=== PATIENT | female | born 1950 | race Two or more races ===

== ENCOUNTER 2017-10-01 15:08 | Outpatient (CLI) | payer OTHER ==
[~2017-10-01 15:08] MED LIST: DEPO-MEDROL40 MG/ML IM; GABAPENTIN300 MG PO; METHOCARBAMOL500 MG PO; NEURONTIN300 MG PO; NORFLEX100MG PO; PROTONIX40 MG PO
== END 2017-10-01 15:15 | disposition home or self-care (01) ==
LOC: RAD 15:08
DX: M13.0 Polyarthritis, unspecified (principal); M25.551 Pain in right hip; M25.552 Pain in left hip; M79.641 Pain in right hand; M79.642 Pain in left hand

== ENCOUNTER 2018-05-16 08:48 | Outpatient (CLI) | payer OTHER | END 2018-05-16 08:51 | disposition home or self-care (01) | LOC: MAMO-SONO 08:48 | DX: Z12.31 Encounter for screening mammogram for malignant neoplasm of breast (principal); Z87.898 Personal history of other specified conditions; N60.11 Diffuse cystic mastopathy of right breast; N63.22 Unspecified lump in the left breast, upper inner quadrant; N60.12 Diffuse cystic mastopathy of left breast ==

== ENCOUNTER 2019-03-05 14:25 | Outpatient (CLI) | payer OTHER | END 2019-03-05 14:30 | disposition home or self-care (01) | LOC: LAB 14:25 | DX: D50.8 Other iron deficiency anemias (principal); I10 Essential (primary) hypertension ==

== ENCOUNTER 2019-03-18 09:33 | Outpatient (CLI) | payer OTHER | END 2019-03-18 09:37 | disposition home or self-care (01) | LOC: SONOGRAMA 09:33 → MAMO-SONO 10:15 | DX: E78.2 Mixed hyperlipidemia (principal); D72.818 Other decreased white blood cell count; E55.9 Vitamin D deficiency, unspecified; G62.89 Other specified polyneuropathies; E03.8 Other specified hypothyroidism; E06.3 Autoimmune thyroiditis; Z80.3 Family history of malignant neoplasm of breast; E04.2 Nontoxic multinodular goiter ==

== ENCOUNTER 2019-05-22 07:39 | Outpatient (CLI) | payer OTHER | END 2019-05-22 07:40 | disposition home or self-care (01) | LOC: MAMO-SONO 07:39 | DX: Z12.31 Encounter for screening mammogram for malignant neoplasm of breast (principal); Z87.898 Personal history of other specified conditions; N60.11 Diffuse cystic mastopathy of right breast; N60.12 Diffuse cystic mastopathy of left breast ==

== ENCOUNTER 2019-07-07 07:56 | Outpatient (CLI) | payer OTHER | END 2019-07-07 08:00 | disposition home or self-care (01) | LOC: LAB 07:56 | DX: D51.1 Vitamin B12 deficiency anemia due to selective vitamin B12 malabsorption with proteinuria (principal); D72.818 Other decreased white blood cell count; Z80.3 Family history of malignant neoplasm of breast; E55.9 Vitamin D deficiency, unspecified; G62.89 Other specified polyneuropathies; D50.8 Other iron deficiency anemias; D51.8 Other vitamin B12 deficiency anemias; D55.0 Anemia due to glucose-6-phosphate dehydrogenase [G6PD] deficiency; J45.998 Other asthma; J30.1 Allergic rhinitis due to pollen ==

== ENCOUNTER 2019-07-07 09:03 | Outpatient (CLI) | payer OTHER | END 2019-07-07 12:57 | disposition home or self-care (01) | LOC: RAD 09:03 | DX: J45.998 Other asthma (principal); J30.1 Allergic rhinitis due to pollen ==

== ENCOUNTER 2019-11-25 07:14 | Outpatient (CLI) | payer OTHER | END 2019-11-25 07:22 | disposition home or self-care (01) | LOC: LAB 07:14 | PROVIDERS: ATTEND Internal Medicine Hematology & Oncology | DX: E78.49 Other hyperlipidemia (principal); E11.9 Type 2 diabetes mellitus without complications; Z12.11 Encounter for screening for malignant neoplasm of colon; D50.8 Other iron deficiency anemias; I10 Essential (primary) hypertension; D51.8 Other vitamin B12 deficiency anemias; E03.8 Other specified hypothyroidism; R97.0 Elevated carcinoembryonic antigen [CEA]; R97.8 Other abnormal tumor markers; Z80.3 Family history of malignant neoplasm of breast; D72.818 Other decreased white blood cell count; D51.1 Vitamin B12 deficiency anemia due to selective vitamin B12 malabsorption with proteinuria; E55.9 Vitamin D deficiency, unspecified; G62.89 Other specified polyneuropathies ==

== ENCOUNTER 2019-12-22 08:34 | Outpatient (CLI) | payer OTHER | END 2019-12-22 08:40 | disposition home or self-care (01) | LOC: LAB 08:34 | PROVIDERS: ATTEND Internal Medicine | DX: N39.0 Urinary tract infection, site not specified (principal) ==

== ENCOUNTER → 2020-04-14 08:04 | Outpatient (CLI) | payer OTHER | END | disposition home or self-care (01) | LOC: LAB 08:04 | PROVIDERS: ATTEND Internal Medicine Hematology & Oncology | DX: E78.49 Other hyperlipidemia (principal); D50.8 Other iron deficiency anemias; I10 Essential (primary) hypertension; D51.8 Other vitamin B12 deficiency anemias; E03.8 Other specified hypothyroidism; R97.0 Elevated carcinoembryonic antigen [CEA]; R97.8 Other abnormal tumor markers; E55.9 Vitamin D deficiency, unspecified; Z80.3 Family history of malignant neoplasm of breast; D72.818 Other decreased white blood cell count; D51.1 Vitamin B12 deficiency anemia due to selective vitamin B12 malabsorption with proteinuria; G62.89 Other specified polyneuropathies ==

== ENCOUNTER → 2020-07-28 08:34 | Outpatient (CLI) | payer OTHER | END | disposition home or self-care (01) | LOC: LAB 08:34 | PROVIDERS: ATTEND Internal Medicine Hematology & Oncology | DX: E11.9 Type 2 diabetes mellitus without complications (principal); Z12.11 Encounter for screening for malignant neoplasm of colon; G62.89 Other specified polyneuropathies; E78.49 Other hyperlipidemia; D50.8 Other iron deficiency anemias; R79.89 Other specified abnormal findings of blood chemistry; I10 Essential (primary) hypertension; R74.02 Elevation of levels of lactic acid dehydrogenase [LDH]; K76.89 Other specified diseases of liver; D51.8 Other vitamin B12 deficiency anemias; D47.2 Monoclonal gammopathy; C90.00 Multiple myeloma not having achieved remission; Z80.3 Family history of malignant neoplasm of breast; D72.818 Other decreased white blood cell count; D51.1 Vitamin B12 deficiency anemia due to selective vitamin B12 malabsorption with proteinuria; E55.9 Vitamin D deficiency, unspecified ==

== ENCOUNTER 2020-07-28 09:34 | Outpatient (CLI) | payer OTHER | END 2020-07-28 09:50 | disposition home or self-care (01) | LOC: MAMO-SONO 09:34 | PROVIDERS: ATTEND Surgery | DX: N60.11 Diffuse cystic mastopathy of right breast (principal); N60.12 Diffuse cystic mastopathy of left breast; Z12.31 Encounter for screening mammogram for malignant neoplasm of breast ==

== ENCOUNTER 2020-08-01 10:23 | Outpatient (CLI) | payer OTHER | END 2020-08-01 10:27 | disposition home or self-care (01) | LOC: LAB 10:23 | PROVIDERS: ATTEND Internal Medicine | DX: G62.89 Other specified polyneuropathies (principal); Z12.11 Encounter for screening for malignant neoplasm of colon; E78.49 Other hyperlipidemia ==

== ENCOUNTER 2020-09-19 14:09 | Outpatient (CLI) | payer OTHER | END 2020-09-19 14:12 | disposition home or self-care (01) | LOC: NUCLEAR 14:09 | PROVIDERS: ATTEND Internal Medicine Hematology & Oncology | DX: M81.0 Age-related osteoporosis without current pathological fracture (principal); D51.1 Vitamin B12 deficiency anemia due to selective vitamin B12 malabsorption with proteinuria ==

== ENCOUNTER → 2020-11-29 08:15 | Outpatient (CLI) | payer OTHER | END | disposition home or self-care (01) | LOC: LAB 08:15 | PROVIDERS: ATTEND Internal Medicine Hematology & Oncology | DX: D50.8 Other iron deficiency anemias (principal); R79.9 Abnormal finding of blood chemistry, unspecified; I10 Essential (primary) hypertension; R74.02 Elevation of levels of lactic acid dehydrogenase [LDH]; K76.89 Other specified diseases of liver; D51.8 Other vitamin B12 deficiency anemias; D47.2 Monoclonal gammopathy; C90.00 Multiple myeloma not having achieved remission; Z80.3 Family history of malignant neoplasm of breast; D72.818 Other decreased white blood cell count; D51.1 Vitamin B12 deficiency anemia due to selective vitamin B12 malabsorption with proteinuria; E78.2 Mixed hyperlipidemia; E55.9 Vitamin D deficiency, unspecified; G62.9 Polyneuropathy, unspecified ==

== ENCOUNTER → 2020-12-19 07:55 | Outpatient (CLI) | payer OTHER | END | disposition home or self-care (01) | LOC: NUCLEAR 07:55 | PROVIDERS: ATTEND Internal Medicine Hematology & Oncology | DX: M15.0 Primary generalized (osteo)arthritis (principal) | CPT/HCPCS: 78306; A9503 ==

== ENCOUNTER → 2021-04-10 08:21 | Outpatient (CLI) | payer OTHER | END | disposition home or self-care (01) | LOC: LAB 08:21 | PROVIDERS: ATTEND Internal Medicine Hematology & Oncology | DX: D72.818 Other decreased white blood cell count (principal); D51.1 Vitamin B12 deficiency anemia due to selective vitamin B12 malabsorption with proteinuria; E78.2 Mixed hyperlipidemia; E55.9 Vitamin D deficiency, unspecified; D51.8 Other vitamin B12 deficiency anemias; G62.89 Other specified polyneuropathies; D50.8 Other iron deficiency anemias; I10 Essential (primary) hypertension; R79.89 Other specified abnormal findings of blood chemistry; K76.89 Other specified diseases of liver; K74.02 Hepatic fibrosis, advanced fibrosis; Z80.3 Family history of malignant neoplasm of breast; R97.0 Elevated carcinoembryonic antigen [CEA]; R97.8 Other abnormal tumor markers ==

== ENCOUNTER → 2021-04-21 08:31 | Outpatient (CLI) | payer OTHER | END | disposition home or self-care (01) | LOC: LAB 08:31 | PROVIDERS: ATTEND Internal Medicine | DX: E11.9 Type 2 diabetes mellitus without complications (principal); J45.20 Mild intermittent asthma, uncomplicated; E78.49 Other hyperlipidemia; K21.9 Gastro-esophageal reflux disease without esophagitis ==

== ENCOUNTER 2021-05-03 08:00 | Outpatient (CLI) | payer OTHER | END 2021-05-03 08:30 | disposition home or self-care (01) | LOC: PPH VACUNA 08:00 | PROVIDERS: ATTEND Emergency Medicine Pediatric Emergency Medicine | DX: Z23 Encounter for immunization (principal) ==

== ENCOUNTER → 2021-08-22 07:38 | Outpatient (CLI) | payer OTHER | END | disposition home or self-care (01) | LOC: LAB 07:38 | PROVIDERS: ATTEND Internal Medicine Hematology & Oncology | DX: D50.8 Other iron deficiency anemias (principal); R79.9 Abnormal finding of blood chemistry, unspecified; I10 Essential (primary) hypertension; R74.02 Elevation of levels of lactic acid dehydrogenase [LDH]; K76.89 Other specified diseases of liver; D51.8 Other vitamin B12 deficiency anemias; E55.9 Vitamin D deficiency, unspecified; R97.0 Elevated carcinoembryonic antigen [CEA]; R97.8 Other abnormal tumor markers; Z80.3 Family history of malignant neoplasm of breast; D72.818 Other decreased white blood cell count; E78.2 Mixed hyperlipidemia; G62.9 Polyneuropathy, unspecified; M15.0 Primary generalized (osteo)arthritis ==

== ENCOUNTER 2021-09-12 08:32 | Emergency (ER) | payer OTHER ==
[~2021-09-12] VITALS: Ht 152.4 cm; Wt 73.5 kg
[2021-09-12] MEDS ORDERED: SIMVASTATIN40 MG PO (09:03)
[2021-09-12] MEDS ORDERED: NORFLEX100MG PO (10:00)
[2021-09-12] MEDS ORDERED: CYCLOBENZAPRINE10 MG PO (10:02)
== END 2021-09-12 11:09 | disposition home or self-care (01) ==
LOC: ER 08:32
DX: M54.59 Other low back pain (principal); Z88.6 Allergy status to analgesic agent

== ENCOUNTER 2021-10-05 08:00 | Outpatient (CLI) | payer OTHER ==
[~2021-10-05 08:00] MED LIST changes: +CYCLOBENZAPRINE10 MG PO; +SIMVASTATIN40 MG PO
== END 2021-10-05 08:30 | disposition home or self-care (01) ==
LOC: PPH VACUNA 08:00
PROVIDERS: ATTEND Emergency Medicine Pediatric Emergency Medicine
DX: Z23 Encounter for immunization (principal)

== ENCOUNTER 2021-11-08 07:34 | Outpatient (CLI) | payer OTHER | END 2021-11-08 07:37 | disposition home or self-care (01) | LOC: LAB 07:34 | PROVIDERS: ATTEND Internal Medicine Gastroenterology | DX: K29.30 Chronic superficial gastritis without bleeding (principal); R10.13 Epigastric pain ==

== ENCOUNTER 2021-11-15 07:22 | Outpatient (CLI) | payer OTHER | END 2021-11-15 07:50 | disposition home or self-care (01) | LOC: SONOGRAMA 07:22 | PROVIDERS: ATTEND Internal Medicine Gastroenterology | DX: K29.30 Chronic superficial gastritis without bleeding (principal); R10.13 Epigastric pain ==

== ENCOUNTER 2021-11-18 07:27 | Outpatient (CLI) | payer OTHER | END 2021-11-18 07:32 | disposition home or self-care (01) | LOC: LAB 07:27 | PROVIDERS: ATTEND Internal Medicine Sports Medicine | DX: Z11.52 Encounter for screening for COVID-19 (principal); Z20.822 Contact with and (suspected) exposure to COVID-19; Z20.828 Contact with and (suspected) exposure to other viral communicable diseases ==

== ENCOUNTER → 2021-12-16 07:11 | Outpatient (CLI) | payer OTHER | END | disposition home or self-care (01) | LOC: LAB 07:11 | PROVIDERS: ATTEND Internal Medicine Hematology & Oncology | DX: D50.8 Other iron deficiency anemias (principal); R79.9 Abnormal finding of blood chemistry, unspecified; I10 Essential (primary) hypertension; R74.02 Elevation of levels of lactic acid dehydrogenase [LDH]; K76.89 Other specified diseases of liver; E55.9 Vitamin D deficiency, unspecified; D72.818 Other decreased white blood cell count; D51.1 Vitamin B12 deficiency anemia due to selective vitamin B12 malabsorption with proteinuria; E78.2 Mixed hyperlipidemia; G62.9 Polyneuropathy, unspecified; M15.0 Primary generalized (osteo)arthritis ==

== ENCOUNTER → 2021-12-21 | Emergency (ER) | payer OTHER ==
[~2021-12-21] VITALS: Ht 152.4 cm; Wt 74.8 kg
[~2021-12-21] MED LIST changes: +QVAR REDIHALE10.6 G1
== END | disposition left against medical advice (07) ==
LOC: ER 11:13
DX: Z53.21 Procedure and treatment not carried out due to patient leaving prior to being seen by health care provider (principal)

== ENCOUNTER → 2022-02-19 08:29 | Outpatient (CLI) | payer OTHER | END | disposition home or self-care (01) | LOC: LAB 08:29 | PROVIDERS: ATTEND Internal Medicine | DX: E78.5 Hyperlipidemia, unspecified (principal); K21.00 Gastro-esophageal reflux disease with esophagitis, without bleeding; Z72.0 Tobacco use ==

== ENCOUNTER → 2022-02-20 08:22 | Outpatient (CLI) | payer OTHER | END | disposition home or self-care (01) | LOC: LAB 08:22 | PROVIDERS: ATTEND Internal Medicine | DX: K21.9 Gastro-esophageal reflux disease without esophagitis (principal); E78.5 Hyperlipidemia, unspecified; Z12.11 Encounter for screening for malignant neoplasm of colon ==

== ENCOUNTER 2022-02-23 09:39 | Outpatient (CLI) | payer OTHER | END 2022-02-23 09:47 | disposition home or self-care (01) | LOC: LAB 09:39 | PROVIDERS: ATTEND Internal Medicine | DX: E05.90 Thyrotoxicosis, unspecified without thyrotoxic crisis or storm (principal) ==

== ENCOUNTER 2022-02-23 11:01 | Outpatient (CLI) | payer OTHER | END 2022-02-23 11:11 | disposition home or self-care (01) | LOC: MAMO-SONO 11:01 | PROVIDERS: ATTEND Internal Medicine | DX: Z12.31 Encounter for screening mammogram for malignant neoplasm of breast (principal); E05.90 Thyrotoxicosis, unspecified without thyrotoxic crisis or storm ==

== ENCOUNTER 2022-05-02 15:04 | Emergency (ER) | payer OTHER ==
[~2022-05-02] VITALS: Ht 152.4 cm; Wt 70.8 kg
[2022-05-02] MEDS ORDERED: ALENDRONATE SOD70 MG PO (15:17)
[2022-05-02] MEDS ORDERED: LORATADINE10 MG PO (15:17)
[2022-05-02] MEDS ORDERED: OMEPRAZOLE20 MG PO (15:17)
== END 2022-05-02 17:29 | disposition home or self-care (01) ==
LOC: ER 15:04
DX: M54.50 Low back pain, unspecified (principal); Z88.6 Allergy status to analgesic agent

== ENCOUNTER 2022-05-14 09:11 | Outpatient (CLI) | payer OTHER ==
[~2022-05-14 09:11] MED LIST changes: +ALENDRONATE SOD70 MG PO; +LORATADINE10 MG PO; +OMEPRAZOLE20 MG PO
== END 2022-05-14 09:20 | disposition home or self-care (01) ==
LOC: MRI 09:11
DX: M54.17 Radiculopathy, lumbosacral region (principal); M54.30 Sciatica, unspecified side; M62.89 Other specified disorders of muscle
CPT/HCPCS: 72148

== ENCOUNTER 2022-06-26 08:31 | Outpatient (CLI) | payer OTHER | END 2022-06-26 08:40 | disposition home or self-care (01) | LOC: LAB 08:31 | PROVIDERS: ATTEND Internal Medicine Hematology & Oncology | DX: D50.8 Other iron deficiency anemias (principal); R79.9 Abnormal finding of blood chemistry, unspecified; I10 Essential (primary) hypertension; R74.02 Elevation of levels of lactic acid dehydrogenase [LDH]; K76.89 Other specified diseases of liver; E55.9 Vitamin D deficiency, unspecified; R97.0 Elevated carcinoembryonic antigen [CEA]; R97.8 Other abnormal tumor markers; Z80.3 Family history of malignant neoplasm of breast; D72.818 Other decreased white blood cell count; D51.1 Vitamin B12 deficiency anemia due to selective vitamin B12 malabsorption with proteinuria; E78.2 Mixed hyperlipidemia; G62.9 Polyneuropathy, unspecified; M15.0 Primary generalized (osteo)arthritis ==

== ENCOUNTER 2022-07-19 17:18 | Emergency (ER) | payer OTHER ==
[~2022-07-19] VITALS: Ht 152.4 cm; Wt 71.7 kg
== END 2022-07-19 22:02 | disposition home or self-care (01) ==
LOC: ER 17:18
DX: S90.32XA Contusion of left foot, initial encounter (principal); W19.XXXA Unspecified fall, initial encounter; Y93.9 Activity, unspecified; Y92.9 Unspecified place or not applicable; Z88.6 Allergy status to analgesic agent; J45.909 Unspecified asthma, uncomplicated

== ENCOUNTER → 2022-11-12 | Outpatient (CLI) | payer OTHER | END | disposition home or self-care (01) | LOC: MRI 11:12 | PROVIDERS: ATTEND Internal Medicine | DX: G50.0 Trigeminal neuralgia (principal); G51.8 Other disorders of facial nerve; R51.9 Headache, unspecified | CPT/HCPCS: 70551 ==

== ENCOUNTER → 2022-12-03 08:15 | Outpatient (CLI) | payer OTHER | END | disposition home or self-care (01) | LOC: LAB 08:15 | PROVIDERS: ATTEND Internal Medicine | DX: I10 Essential (primary) hypertension (principal); E78.5 Hyperlipidemia, unspecified; J45.30 Mild persistent asthma, uncomplicated; K21.00 Gastro-esophageal reflux disease with esophagitis, without bleeding ==

== ENCOUNTER 2022-12-24 07:48 | Outpatient (CLI) | payer OTHER | END 2022-12-24 07:50 | disposition home or self-care (01) | LOC: LAB 07:48 | PROVIDERS: ATTEND Internal Medicine Hematology & Oncology | DX: D50.8 Other iron deficiency anemias (principal); R79.9 Abnormal finding of blood chemistry, unspecified; I10 Essential (primary) hypertension; R74.02 Elevation of levels of lactic acid dehydrogenase [LDH]; K76.89 Other specified diseases of liver; E55.9 Vitamin D deficiency, unspecified; C56.9 Malignant neoplasm of unspecified ovary; R97.8 Other abnormal tumor markers; R97.1 Elevated cancer antigen 125 [CA 125]; Z80.3 Family history of malignant neoplasm of breast; D72.818 Other decreased white blood cell count; D51.1 Vitamin B12 deficiency anemia due to selective vitamin B12 malabsorption with proteinuria; E78.2 Mixed hyperlipidemia; G62.9 Polyneuropathy, unspecified; M15.0 Primary generalized (osteo)arthritis ==

== ENCOUNTER 2023-02-18 16:01 | Outpatient (CLI) | payer OTHER | END 2023-02-18 16:05 | disposition home or self-care (01) | LOC: RAD 16:01 | DX: M15.0 Primary generalized (osteo)arthritis (principal) ==

== ENCOUNTER 2023-05-13 07:45 | Outpatient (CLI) | payer OTHER ==
[2023-05-13 08:53] LABS: HEMATOCRIT 36.8 % (36.0-45.00); HEMOGLOBIN 12.6 g/dL (12.0-15.00); MEAN CELL VOLUME 92.8 fL (80.00-100.00); MEAN CORPUSCULAR HEMOGLOBIN 31.9 pg (27.00-32.0); MEAN CORPUSCULAR HGB CONC 34.3 g/dl (32.0-36.0); PLATELET COUNT 302 K/uL (150-450); RED BLOOD COUNT 3.96 M/uL (4.00-6.00); RED CELL DISTRIBUTION WIDTH 13.8 % (11.5-14.5)
[2023-05-13 09:45] LABS: ALBUMIN 3.7 gm/dL (3.4-5.0); BILIRUBIN TOTAL 0.35 mg/dL (0.3-1.2); CALCIUM 9.3 mg/dL (8.5-10.1); CREATININE SERUM 0.62 mg/dL (0.55-1.02); GFR 94.35; GLOBULINA 3.2 G/DL (2.4-3.5); POTASSIUM 4.06 mEq/L (3.5-5.1); TOTAL PROTEIN 6.9 gm/dL (6.4-8.2)
[2023-05-15 09:34] LABS: MANUAL PLATELET COUNT 516
[2023-05-15 09:37] LABS: PLATELET ESTIMATE INCREASED (NORMAL)
== END 2023-05-13 07:46 | disposition home or self-care (01) ==
LOC: LAB 07:45
PROVIDERS: ATTEND Internal Medicine Hematology & Oncology
DX: D50.8 Other iron deficiency anemias (principal); R79.9 Abnormal finding of blood chemistry, unspecified; I10 Essential (primary) hypertension; R74.02 Elevation of levels of lactic acid dehydrogenase [LDH]; K76.89 Other specified diseases of liver; Z80.3 Family history of malignant neoplasm of breast; D72.818 Other decreased white blood cell count; D51.1 Vitamin B12 deficiency anemia due to selective vitamin B12 malabsorption with proteinuria; E78.2 Mixed hyperlipidemia; E55.9 Vitamin D deficiency, unspecified; G62.9 Polyneuropathy, unspecified; M15.0 Primary generalized (osteo)arthritis

== ENCOUNTER 2023-06-17 08:55 | Outpatient (CLI) | payer OTHER ==
[2023-06-17 10:03] LABS: ALBUMIN 3.8 gm/dL (3.4-5.0); ALKALINE PHOSPHATASE 128 U/L (50-136); ALT/SGPT 33 U/L (12-78); AST/SGOT 23 U/L (15-37); BILIRUBIN TOTAL 0.33 mg/dL (0.3-1.2); BILIRUBIN,CONJUGATED < 0.10 mg/dL (0.0-0.2); BILIRUBIN,UNCONJUGATED 0.23 mg/dL (0.0-0.6)
[2023-06-18 10:08] LABS: IMMUNOGLOBULIN A 129 mg/dL (64-422); IMMUNOGLOBULIN G 877 mg/dL (586-1602); IMMUNOGLOBULIN M 85 mg/dL (26-217)
== END 2023-06-17 08:56 | disposition home or self-care (01) ==
LOC: LAB 08:55
PROVIDERS: ATTEND Internal Medicine Gastroenterology
DX: K21.9 Gastro-esophageal reflux disease without esophagitis (principal); Z86.010 Personal history of colon polyps; R74.01 Elevation of levels of liver transaminase levels

== ENCOUNTER → 2023-06-21 | Outpatient (CLI) | payer OTHER | END | disposition home or self-care (01) | LOC: TOM 07:56 | PROVIDERS: ATTEND Internal Medicine Gastroenterology | DX: K56.600 Partial intestinal obstruction, unspecified as to cause (principal); Z86.010 Personal history of colon polyps ==

== ENCOUNTER 2023-08-20 08:31 | Outpatient (CLI) | payer OTHER ==
[2023-08-20 09:28] LABS: CREATININE SERUM 0.59 mg/dL (0.55-1.02)
== END 2023-08-20 08:32 | disposition home or self-care (01) ==
LOC: LAB 08:31
PROVIDERS: ATTEND Radiology Diagnostic Radiology
DX: D32.9 Benign neoplasm of meninges, unspecified (principal)

== ENCOUNTER 2023-08-23 07:56 | Outpatient (CLI) | payer OTHER | END 2023-08-23 08:01 | disposition home or self-care (01) | LOC: MRI 07:56 | DX: D32.9 Benign neoplasm of meninges, unspecified (principal) | CPT/HCPCS: 70553; Q9965; 70552 ==

== ENCOUNTER 2023-09-12 07:55 | Outpatient (CLI) | payer OTHER ==
[2023-09-12 08:54] LABS: HEMATOCRIT 37.4 % (36.0-45.00); HEMOGLOBIN 12.7 g/dL (12.0-15.00); MEAN CELL VOLUME 93.5 fL (80.00-100.00); MEAN CORPUSCULAR HEMOGLOBIN 31.7 pg (27.00-32.0); MEAN CORPUSCULAR HGB CONC 33.9 g/dl (32.0-36.0); PLATELET COUNT 293 K/uL (150-450); RED CELL DISTRIBUTION WIDTH 13.9 % (11.5-14.5)
[2023-09-12 09:11] LABS: ALBUMIN 3.8 gm/dL (3.4-5.0); BILIRUBIN TOTAL 0.4 mg/dL (0.3-1.2); CALCIUM 9.3 mg/dL (8.5-10.1); CREATININE SERUM 0.64 mg/dL (0.55-1.02); FERRITIN 15.9 NG/ML (8-252); GFR 90.96; GLOBULINA 2.9 G/DL (2.4-3.5); POTASSIUM 4.23 mEq/L (3.5-5.1); TOTAL PROTEIN 6.7 gm/dL (6.4-8.2)
[2023-09-12 09:54] LABS: MANUAL PLATELET COUNT 296
[2023-09-12 12:23] LABS: FOLIC ACID 17.72 ng/ml (4.78-20)
== END 2023-09-12 07:57 | disposition home or self-care (01) ==
LOC: LAB 07:55
PROVIDERS: ATTEND Internal Medicine Hematology & Oncology
DX: D46.Z Other myelodysplastic syndromes (principal); Z80.3 Family history of malignant neoplasm of breast; D72.818 Other decreased white blood cell count; D51.1 Vitamin B12 deficiency anemia due to selective vitamin B12 malabsorption with proteinuria; E78.2 Mixed hyperlipidemia; E55.9 Vitamin D deficiency, unspecified; G52.9 Cranial nerve disorder, unspecified; M15.0 Primary generalized (osteo)arthritis

== ENCOUNTER 2023-09-19 08:24 | Outpatient (CLI) | payer OTHER ==
[2023-09-19 09:16] LABS: URINE APPEARANCE Clear; URINE BILIRRUBIN Negative (NEGATIVE); URINE BLOOD Negative; URINE COLOR Yellow; URINE GLUCOSE Negative (NEGATIVE); URINE LEUKOCYTE Moderate; URINE NITRATE Negative; URINE PROTEIN Negative (NEGATIVE); URINE UROBILINOGEN 0.2 E.U./dl
[2023-09-19 09:19] LABS: URINE BACTERIA 54.1 uL (0.0-1933); URINE EPITHELIAL CELLS 15.2 uL (0.0-38.8); URINE RBC 4.1 uL (0.0-20.8); URINE WBC 51.3 uL (0.0-23.2)
== END 2023-09-19 08:25 | disposition home or self-care (01) ==
LOC: LAB 08:24
DX: M15.1 Heberden's nodes (with arthropathy) (principal); E55.9 Vitamin D deficiency, unspecified

== ENCOUNTER → 2024-02-11 09:42 | Outpatient (CLI) | payer OTHER ==
[2024-02-11 11:45] LABS: CREATININE SERUM 0.57 mg/dL (0.55-1.02)
== END | disposition home or self-care (01) ==
LOC: LAB 09:42
PROVIDERS: ATTEND Radiology Diagnostic Radiology
DX: D42.9 Neoplasm of uncertain behavior of meninges, unspecified (principal)

== ENCOUNTER 2024-02-17 08:27 | Outpatient (CLI) | payer OTHER | END 2024-02-17 14:39 | disposition home or self-care (01) | LOC: MRI 08:27 | DX: D42.9 Neoplasm of uncertain behavior of meninges, unspecified (principal) | CPT/HCPCS: 70553; Q9965 ==

== ENCOUNTER 2024-03-10 08:03 | Outpatient (CLI) | payer OTHER | END 2024-03-10 08:15 | disposition home or self-care (01) | LOC: MAMO-SONO 08:03 | PROVIDERS: ATTEND Internal Medicine Hematology & Oncology | DX: N63.0 Unspecified lump in unspecified breast (principal); N64.4 Mastodynia; Z80.3 Family history of malignant neoplasm of breast; D72.818 Other decreased white blood cell count; D51.1 Vitamin B12 deficiency anemia due to selective vitamin B12 malabsorption with proteinuria; E78.2 Mixed hyperlipidemia; E55.9 Vitamin D deficiency, unspecified; G62.9 Polyneuropathy, unspecified; M15.0 Primary generalized (osteo)arthritis; Z12.31 Encounter for screening mammogram for malignant neoplasm of breast ==

== ENCOUNTER 2024-03-10 08:52 | Outpatient (CLI) | payer OTHER ==
[2024-03-10 09:44] LABS: HEMATOCRIT 35.9 % (36.0-45.00); HEMOGLOBIN 12.3 g/dL (12.0-15.00); MEAN CELL VOLUME 94.5 fL (80.00-100.00); MEAN CORPUSCULAR HEMOGLOBIN 32.3 pg (27.00-32.0); MEAN CORPUSCULAR HGB CONC 34.2 g/dl (32.0-36.0); PLATELET COUNT 292 K/uL (150-450); RED CELL DISTRIBUTION WIDTH 13.5 % (11.5-14.5)
[2024-03-10 10:35] LABS: ALBUMIN 3.6 gm/dL (3.4-5.0); BILIRUBIN TOTAL 0.38 mg/dL (0.3-1.2); CALCIUM 9.3 mg/dL (8.5-10.1); CREATININE SERUM 0.56 mg/dL (0.55-1.02); GFR 105.82; GLOBULINA 3.1 G/DL (2.4-3.5); POTASSIUM 4.02 mEq/L (3.5-5.1); TOTAL PROTEIN 6.7 gm/dL (6.4-8.2)
[2024-03-10 11:14] LABS: PLATELET ESTIMATE NORMAL (NORMAL)
== END 2024-03-10 08:58 | disposition home or self-care (01) ==
LOC: LAB 08:52
PROVIDERS: ATTEND Internal Medicine Hematology & Oncology
DX: Z80.3 Family history of malignant neoplasm of breast (principal); D72.818 Other decreased white blood cell count; D51.9 Vitamin B12 deficiency anemia, unspecified; E78.00 Pure hypercholesterolemia, unspecified; E55.9 Vitamin D deficiency, unspecified; M15.0 Primary generalized (osteo)arthritis; D50.8 Other iron deficiency anemias; R79.9 Abnormal finding of blood chemistry, unspecified; I10 Essential (primary) hypertension; R74.02 Elevation of levels of lactic acid dehydrogenase [LDH]; K76.89 Other specified diseases of liver

== ENCOUNTER 2024-04-21 08:40 | Outpatient (CLI) | payer OTHER ==
[2024-04-21 09:28] LABS: HEMATOCRIT 37.3 % (36.0-45.00); HEMOGLOBIN 12.7 g/dL (12.0-15.00); MEAN CELL VOLUME 92.2 fL (80.00-100.00); MEAN CORPUSCULAR HEMOGLOBIN 31.5 pg (27.00-32.0); MEAN CORPUSCULAR HGB CONC 34.2 g/dl (32.0-36.0); PLATELET COUNT 287 K/uL (150-450); RED BLOOD COUNT 4.04 M/uL (4.00-6.00); RED CELL DISTRIBUTION WIDTH 13.3 % (11.5-14.5)
[2024-04-21 10:02] LABS: ALBUMIN 3.8 gm/dL (3.4-5.0); BILIRUBIN TOTAL 0.3 mg/dL (0.3-1.2); CALCIUM 9.2 mg/dL (8.5-10.1); CREATININE SERUM 0.57 mg/dL (0.55-1.02); GFR 103.68; GLOBULINA 2.9 G/DL (2.4-3.5); POTASSIUM 4.38 mEq/L (3.5-5.1); T4 TOTAL 7.5 UG/DL (4.8-13.9); TOTAL PROTEIN 6.7 gm/dL (6.4-8.2); TSH 0.579 uIU/mL (0.358-3.74)
== END 2024-04-21 08:41 | disposition home or self-care (01) ==
LOC: LAB 08:40
PROVIDERS: ATTEND General Practice
DX: D32.0 Benign neoplasm of cerebral meninges (principal); G50.0 Trigeminal neuralgia

== ENCOUNTER 2024-04-24 07:22 | Outpatient (CLI) | payer OTHER | END 2024-04-24 08:00 | disposition home or self-care (01) | LOC: MRI 07:22 | PROVIDERS: ATTEND General Practice | DX: D32.0 Benign neoplasm of cerebral meninges (principal); G50.0 Trigeminal neuralgia | CPT/HCPCS: 70553; Q9965 ==

== ENCOUNTER → 2024-06-26 09:12 | Outpatient (CLI) | payer OTHER ==
[2024-06-26 10:33] LABS: HEMATOCRIT 37.4 % (36.0-45.00); HEMOGLOBIN 12.6 g/dL (12.0-15.00); MEAN CELL VOLUME 94.4 fL (80.00-100.00); MEAN CORPUSCULAR HEMOGLOBIN 31.7 pg (27.00-32.0); MEAN CORPUSCULAR HGB CONC 33.6 g/dl (32.0-36.0); PLATELET COUNT 294 K/uL (150-450); RED BLOOD COUNT 3.96 M/uL (4.00-6.00); RED CELL DISTRIBUTION WIDTH 14.1 % (11.5-14.5)
[2024-06-26 10:37] LABS: PH,URINE 7.5 (5.0-8.0); URINE APPEARANCE Clear; URINE BILIRRUBIN Negative (NEGATIVE); URINE BLOOD Negative; URINE COLOR Yellow; URINE GLUCOSE Negative (NEGATIVE); URINE KETONE Negative (NEGATIVE); URINE LEUKOCYTE Small; URINE NITRATE Negative; URINE PROTEIN Negative (NEGATIVE); URINE UROBILINOGEN 0.2 E.U./dl
[2024-06-26 10:37] LABS: ERYTHROCYTE SEDIMENTATION RATE 17 mm/hr
[2024-06-26 10:45] LABS: URINE WBC 4.2 uL (0.0-23.2)
[2024-06-26 11:01] LABS: URINE BACTERIA 2.4 uL (0.0-1933); URINE EPITHELIAL CELLS 0.4 uL (0.0-38.8)
[2024-06-26 11:21] LABS: ALBUMIN 3.8 gm/dL (3.4-5.0); ALKALINE PHOSPHATASE 133 U/L (50-136); ALT/SGPT 25 U/L (12-78); ANION GAP 8 (10.0-20.0); AST/SGOT 21 U/L (15-37); BILIRUBIN TOTAL 0.28 mg/dL (0.3-1.2); BLOOD UREA NITROGEN 14 mg/dL (7-18); BUN CREA RATIO 25 (7.0-25.0); CARBON DIOXIDE 31 mEq/L (21-32); CHLORIDE 108 mmol/L (98-107); CHOL HDL RATIO 3.3 (0-5.0); CHOLESTEROL 249 mg/dL (0-200); CREATININE SERUM 0.55 mg/dL (0.55-1.02); GFR 108.05; GLOBULINA 3.3 G/DL (2.4-3.5); GLUCOSE FASTING 93 mg/dL (65-100); HDL 75 mg/dl (40-60); LDL 154 mg/dl (0-130); OSMOLALITY SERUM 283 MOSM/KG (275-295); POTASSIUM 4.87 mEq/L (3.5-5.1); SODIUM 142 mmol/L (136-145); TOTAL PROTEIN 7.1 gm/dL (6.4-8.2); TRIGLYCERIDES 101 mg/dL (0-150); TSH 0.572 uIU/mL (0.358-3.74); VLDL 20 (0-39)
[2024-06-26 11:22] LABS: C-REACTIVE PROTEIN < 0.29 MG/DL (0.00-0.29)
== END | disposition home or self-care (01) ==
LOC: LAB 09:12
DX: M15.1 Heberden's nodes (with arthropathy) (principal); M79.5 Residual foreign body in soft tissue; E55.9 Vitamin D deficiency, unspecified; I10 Essential (primary) hypertension

== ENCOUNTER → 2024-07-27 08:16 | Outpatient (CLI) | payer OTHER ==
[2024-07-27 09:23] LABS: HEMATOCRIT 36.9 % (36.0-45.00); HEMOGLOBIN 12.6 g/dL (12.0-15.00); MEAN CELL VOLUME 93.2 fL (80.00-100.00); MEAN CORPUSCULAR HEMOGLOBIN 31.7 pg (27.00-32.0); MEAN CORPUSCULAR HGB CONC 34.1 g/dl (32.0-36.0); PLATELET COUNT 285 K/uL (150-450); RED BLOOD COUNT 3.96 M/uL (4.00-6.00); RED CELL DISTRIBUTION WIDTH 13.8 % (11.5-14.5)
[2024-07-27 10:01] LABS: ALBUMIN 3.7 gm/dL (3.4-5.0); BILIRUBIN TOTAL 0.38 mg/dL (0.3-1.2); CALCIUM 9.1 mg/dL (8.5-10.1); CARBAMAZEPINE(TEGRETOL) 6.8 ug/ml (4.00-12.0); CREATININE SERUM 0.54 mg/dL (0.55-1.02); GFR 110.36; GLOBULINA 2.9 G/DL (2.4-3.5); POTASSIUM 4.75 mEq/L (3.5-5.1); TOTAL PROTEIN 6.6 gm/dL (6.4-8.2)
== END | disposition home or self-care (01) ==
LOC: LAB 08:16
PROVIDERS: ATTEND General Practice
DX: D72.819 Decreased white blood cell count, unspecified (principal); G50.0 Trigeminal neuralgia; D42.9 Neoplasm of uncertain behavior of meninges, unspecified

== ENCOUNTER 2024-08-10 08:00 | Outpatient (CLI) | payer OTHER | END 2024-08-10 08:05 | disposition home or self-care (01) | LOC: MRI 08:00 | DX: D42.9 Neoplasm of uncertain behavior of meninges, unspecified (principal) | CPT/HCPCS: 70553 ==

== ENCOUNTER → 2024-09-16 08:16 | Outpatient (CLI) | payer OTHER ==
[2024-09-16 08:57] LABS: HEMATOCRIT 34.9 % (36.0-45.00); HEMOGLOBIN 12.3 g/dL (12.0-15.00); MEAN CELL VOLUME 92.8 fL (80.00-100.00); MEAN CORPUSCULAR HEMOGLOBIN 32.7 pg (27.00-32.0); MEAN CORPUSCULAR HGB CONC 35.2 g/dl (32.0-36.0); PLATELET COUNT 243 K/uL (150-450); RED BLOOD COUNT 3.76 M/uL (4.00-6.00); RED CELL DISTRIBUTION WIDTH 13.5 % (11.5-14.5)
[2024-09-16 09:35] LABS: ALBUMIN 3.7 gm/dL (3.4-5.0); BILIRUBIN TOTAL 0.34 mg/dL (0.3-1.2); CALCIUM 8.9 mg/dL (8.5-10.1); CREATININE SERUM 0.53 mg/dL (0.55-1.02); FERRITIN 12.8 NG/ML (8-252); GFR 112.76; GLOBULINA 2.8 G/DL (2.4-3.5); POTASSIUM 4.08 mEq/L (3.5-5.1); TOTAL PROTEIN 6.5 gm/dL (6.4-8.2)
[2024-09-16 11:47] LABS: FOLIC ACID 13.17 ng/ml (4.78-20); VITAMIN D3 25 HYDROXY 48.28 ng/ml (30-120)
[2024-09-16 12:08] LABS: MANUAL PLATELET COUNT 338
[2024-09-16 12:09] LABS: PLATELET ESTIMATE NORMAL (NORMAL)
[2024-09-17 11:11] LABS: CA 125 12.4 U/mL (0.0-38.1); CA 15-3 22.9 U/mL (0.0-25.0)
== END | disposition home or self-care (01) ==
LOC: LAB 08:16
PROVIDERS: ATTEND Internal Medicine Hematology & Oncology
DX: D64.2 Secondary sideroblastic anemia due to drugs and toxins (principal); D51.1 Vitamin B12 deficiency anemia due to selective vitamin B12 malabsorption with proteinuria; E78.2 Mixed hyperlipidemia; E55.9 Vitamin D deficiency, unspecified; G62.9 Polyneuropathy, unspecified; M15.0 Primary generalized (osteo)arthritis; Z80.3 Family history of malignant neoplasm of breast; D50.8 Other iron deficiency anemias; R79.9 Abnormal finding of blood chemistry, unspecified; I10 Essential (primary) hypertension; R74.02 Elevation of levels of lactic acid dehydrogenase [LDH]; K76.89 Other specified diseases of liver; C50.919 Malignant neoplasm of unspecified site of unspecified female breast; R97.8 Other abnormal tumor markers; R97.0 Elevated carcinoembryonic antigen [CEA]

== ENCOUNTER 2024-11-17 07:26 | Outpatient (CLI) | payer OTHER | END 2024-11-17 07:28 | disposition home or self-care (01) | LOC: RAD 07:26 | PROVIDERS: ATTEND Internal Medicine | DX: M25.561 Pain in right knee (principal); M25.562 Pain in left knee ==

== ENCOUNTER 2024-12-24 08:04 | Outpatient (CLI) | payer OTHER ==
[2024-12-24 08:49] LABS: BASO % 0.7 % (0.1-1.2); EOS # 0.03 (0.04-0.54); EOS % 1.0 % (0.7-7.0); LYMPH # 1.15 (1.18-3.74); LYMPH % 39.1 % (19.3-53.1); MEAN PLATELET VOLUME 9.00 fl (9.4-12.4); MONO # 0.26 (0.24-0.82); MONO % 8.8 % (4.7-12.5); NEUT # 1.47 (1.56-6.13); NEUT % 50.1 % (34.0-71.1); RED CELL DISTRIBUTION WIDTH 12.9 % (11.6-14.4)
[2024-12-24 09:24] LABS: ALT/SGPT 34 U/L (12-78); AST/SGOT 21 U/L (15-37); BILIRUBIN TOTAL 0.37 mg/dL (0.3-1.2); BUN CREA RATIO 33 (7.0-25.0); CREATININE SERUM 0.60 mg/dL (0.55-1.02); GFR 97.46; GLOBULINA 2.8 G/DL (2.4-3.5); GLUCOSE FASTING 96 mg/dL (65-100); OSMOLALITY SERUM 291 MOSM/KG (275-295)
[2024-12-24 09:26] LABS: ERYTHROCYTE SEDIMENTATION RATE 11 mm/hr (0-30)
[2024-12-24 09:59] LABS: URINE APPEARANCE Clear; URINE BILIRRUBIN Negative (NEGATIVE); URINE BLOOD Negative; URINE COLOR Yellow; URINE GLUCOSE Negative (NEGATIVE); URINE KETONE Negative (NEGATIVE); URINE LEUKOCYTE Small; URINE NITRATE Negative; URINE PROTEIN Negative (NEGATIVE); URINE UROBILINOGEN 0.2 E.U./dl
[2024-12-24 10:03] LABS: URINE BACTERIA 13.1 uL (0.0-1933); URINE RBC 4.1 uL (0.0-20.8); URINE WBC 14.2 uL (0.0-23.2)
[2024-12-24 10:11] LABS: URINE CAST 0.00 uL (0.0-1.40); URINE EPITHELIAL CELLS 1.2 uL (0.0-38.8)
== END 2024-12-24 08:08 | disposition home or self-care (01) ==
LOC: LAB 08:04
DX: M06.9 Rheumatoid arthritis, unspecified (principal); M15.1 Heberden's nodes (with arthropathy); Z13.828 Encounter for screening for other musculoskeletal disorder; I10 Essential (primary) hypertension; M79.7 Fibromyalgia

== ENCOUNTER 2025-01-03 12:22 | Emergency (ER) | payer OTHER ==
[~2025-01-03] VITALS: Ht 157.5 cm; Wt 70.8 kg
[2025-01-03] MEDS ORDERED: GUAIFENESIN 200 MG/10 ML BLIST.PACK PO ONE (13:15)
[2025-01-03 14:17] LABS: COVID-19 AG NEGATIVE (NEGATIVE)
[2025-01-03 14:40] LABS: BASO % 0.7 % (0.1-1.2); EOS # 0.05 (0.04-0.54); EOS % 1.2 % (0.7-7.0); LYMPH # 1.95 (1.18-3.74); LYMPH % 47.7 % (19.3-53.1); MEAN PLATELET VOLUME 9.30 fl (9.4-12.4); MONO # 0.37 (0.24-0.82); MONO % 9.0 % (4.7-12.5); NEUT # 1.68 (1.56-6.13); NEUT % 41.2 % (34.0-71.1); RED CELL DISTRIBUTION WIDTH 13.1 % (11.6-14.4)
== END 2025-01-03 14:54 | disposition home or self-care (01) ==
LOC: ER 12:27
PROVIDERS: General Practice
DX: B34.9 Viral infection, unspecified (principal); Z20.822 Contact with and (suspected) exposure to COVID-19; Z88.6 Allergy status to analgesic agent

== ENCOUNTER → 2025-02-15 08:30 | Outpatient (CLI) | payer OTHER ==
[2025-02-15 10:06] LABS: CREATININE SERUM 0.64 mg/dL (0.55-1.02)
== END | disposition home or self-care (01) ==
LOC: LAB 08:30
PROVIDERS: ATTEND Radiology Diagnostic Radiology
DX: D42.9 Neoplasm of uncertain behavior of meninges, unspecified (principal)

== ENCOUNTER 2025-02-24 08:58 | Outpatient (CLI) | payer OTHER | END 2025-02-24 09:05 | disposition home or self-care (01) | LOC: MRI 08:58 | DX: D42.9 Neoplasm of uncertain behavior of meninges, unspecified (principal) | CPT/HCPCS: 70553 ==

== ENCOUNTER 2025-03-16 08:57 | Outpatient (CLI) | payer OTHER ==
[2025-03-16 10:17] LABS: BASO % 0.7 % (0.1-1.2); EOS # 0.02 (0.04-0.54); EOS % 0.7 % (0.7-7.0); LYMPH # 1.33 (1.18-3.74); LYMPH % 43.5 % (19.3-53.1); MEAN PLATELET VOLUME 9.30 fl (9.4-12.4); MONO # 0.28 (0.24-0.82); MONO % 9.2 % (4.7-12.5); NEUT # 1.41 (1.56-6.13); NEUT % 45.9 % (34.0-71.1); RED CELL DISTRIBUTION WIDTH 12.4 % (11.6-14.4)
[2025-03-16 11:24] LABS: % SATURACION 38.6 % (15-50); ALT/SGPT 35.0 U/L (12-78); AST/SGOT 22.0 U/L (15-37); BILIRUBIN TOTAL 0.44 mg/dL (0.3-1.2); BUN CREA RATIO 31.0 (7.0-25.0); CARBAMAZEPINE(TEGRETOL) 4.1 ug/ml (4.00-12.0); CREATININE SERUM 0.51 mg/dL (0.55-1.02); FE 124.0 ug/dl (50-170); GFR 117.56; GLOBULINA 2.8 G/DL (2.4-3.5); GLUCOSE FASTING 89.0 mg/dL (65-100); LDH 178.0 U/L (84-246); OSMOLALITY SERUM 284.0 MOSM/KG (275-295); T4 TOTAL 6.08 UG/DL (4.8-13.9); TSH 0.653 uIU/mL (0.358-3.74)
[2025-03-16 11:26] LABS: FOLIC ACID 15.77 ng/ml (4.78-20); T3 TOTAL 1.02 ng/ml (0.846-2.02); VITAMIN D3 25 HYDROXY 87.0 ng/ml (30-120)
[2025-03-17 09:07] LABS: CA 125 20.8 U/mL (0.0-38.1); CA 15-3 11.7 U/mL (0.0-25.0); CA 19-9 15.0 U/mL (0-35)
== END 2025-03-16 09:06 | disposition home or self-care (01) ==
LOC: LAB 08:57
PROVIDERS: ATTEND Internal Medicine Hematology & Oncology
DX: D50.8 Other iron deficiency anemias (principal); R79.9 Abnormal finding of blood chemistry, unspecified; I10 Essential (primary) hypertension; R74.02 Elevation of levels of lactic acid dehydrogenase [LDH]; K76.89 Other specified diseases of liver; E55.9 Vitamin D deficiency, unspecified; C50.919 Malignant neoplasm of unspecified site of unspecified female breast; D46.Z Other myelodysplastic syndromes; D51.1 Vitamin B12 deficiency anemia due to selective vitamin B12 malabsorption with proteinuria; E78.2 Mixed hyperlipidemia; G62.9 Polyneuropathy, unspecified; G50.0 Trigeminal neuralgia; C70.9 Malignant neoplasm of meninges, unspecified; M15.0 Primary generalized (osteo)arthritis

== ENCOUNTER 2025-05-14 08:41 | Outpatient (CLI) | payer OTHER ==
[2025-05-14 09:17] LABS: BASO % 0.5 % (0.1-1.2); EOS # 0.03 (0.04-0.54); EOS % 0.8 % (0.7-7.0); LYMPH # 1.36 (1.18-3.74); LYMPH % 34.5 % (19.3-53.1); MEAN PLATELET VOLUME 8.70 fl (9.4-12.4); MONO # 0.40 (0.24-0.82); MONO % 10.2 % (4.7-12.5); NEUT # 2.13 (1.56-6.13); NEUT % 54.0 % (34.0-71.1); RED CELL DISTRIBUTION WIDTH 12.3 % (11.6-14.4)
== END 2025-05-14 08:46 | disposition home or self-care (01) ==
LOC: LAB 08:41
PROVIDERS: ATTEND General Practice
DX: G50.0 Trigeminal neuralgia (principal)